=== PATIENT | female | born 1965 | race Caucasian/White ===

== ENCOUNTER → 2018-08-24 | Outpatient (CLI) | payer OTHER ==
[2018-08-24 16:43] VITALS: BP 121/79; PULSE 80; RESP 16; TEMP 98.6; BMI 30.2
--- NOTE | 2018-08-25 09:54 | WWHP ---
[facility] - HISTORY AND PHYSICAL DATE OF DICTATION: 08/24/2018 CHIEF COMPLAINT: The patient is here for her routine gynecologic exam and mammogram. HPI: This is a 52-year-old, G5, P2-0-3-2 with an LMP of 1995. She is status post DANNY and BSO done for benign reasons. The patient is here to establish with this office. It has been about 5 years since her last pelvic exam. The patient states she recently had dental work done and was given an antibiotic. She states she developed vaginal and vulvar pruritus with a whitish discharge. She thinks she has a yeast infection. The patient is otherwise without gynecologic complaints. PAST MEDICAL HISTORY: Fibromyalgia, chronic back and herniated disc problems, history of migraine, history of depression and anxiety. MEDICATIONS: Lyrica 200 mg daily. PAST SURGICAL HISTORY: Arthroscopic knee surgery, DANNY BSO in in 1995. PAST OB HISTORY: Two vaginal deliveries. She also has had one VTP and 2 spontaneous abortions. 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 She has no history of STDs. SOCIAL HISTORY: She quit smoking in 1997. She has 0-2 alcoholic drinks per month and denies drug use. She has been since 1994. She currently does not work outside the home. FAMILY HISTORY: Mother had breast and ovarian cancer. Maternal grandmother had breast cancer. Father had an ID and renal failure. Her brother has renal failure. REVIEW OF SYSTEMS: She has lost approximately 20 to 30 pounds with dietary changes. She denies respiratory, cardiac or GI problems. PHYSICAL EXAMINATION: Blood pressure 121/79, height 5 feet and 2 inches, weight 165 pounds, temperature 98.6, pulse 80, respiratory rate 16, pulse oximeter 97%. BMI 30. This is a well-developed, well-nourished, black female who is alert and oriented x3, in no acute distress. HEENT is within normal limits. NECK: Supple without mass or thyromegaly. CHEST AND LUNGS: Clear to auscultation. HEART: Regular rate and rhythm. Breasts are without mass or discharge. Axillary exam is negative for adenopathy. BACK: Negative for CVA tenderness. ABDOMEN: Soft, nontender, without palpable masses. PELVIC EXAM: External genitalia reveals mild atrophy without lesions. Vagina reveals mild atrophy without lesions. There is a small thick whitish discharge without odor. There is no evidence of prolapse. Bimanual examination reveals a pelvic mass just posterior and superior to the vaginal apex. This measures approximately 4 x 4 cm and is slightly irregular and slightly mobile. This is nontender. Rectovaginal exam confirms this pelvic mass and that the mass does not seem to be rectal stool. There are no rectal masses. Rectal exam is negative for occult blood. EXTREMITIES: Nontender. IMPRESSION: 1. A 52-year-old menopausal female, status post DANNY BSO with a 4 x 4 cm mass palpable with bimanual pelvic examination. Differential diagnosis will include colonic stool, ovarian remnant mass and nongynecologic mass. At this time, I think colonic stool is the most likely. The patient states she does not move her bowels daily. 2. Suspected Mary vaginitis following antibiotic use. PLAN: 1. Pap smears have been discontinued. 2. Self breast awareness was discussed. 3. Screening mammogram will be done today. 4. Pelvic ultrasound will be ordered. The order slip was given to the patient for this. 5. Diflucan 150 mg p.o. x1. The prescription will be called in to [facility] on [address] She will be given 2 refills for when she has similar symptoms after antibiotics. 6. She is currently looking for primary care physician. I recommended that when she establishes with a primary care physician that she talk to them about setting up a colonoscopy for her based on her age. 7. Pelvic ultrasound will be done after trying to empty her bowels using Senokot as directed. 8. She will also return in 1 year and p.r.n. MMODL / IJN: [id number] /
--- NOTE | 2018-08-25 11:15 | MM ---
Reason for exam: screening (asymptomatic). Last mammogram was performed 3 years and 7 months ago. History: Patient is postmenopausal. Family history of breast cancer in maternal grandmother and breast cancer in mother at age 65. Physical Findings: A clinical breast exam by your physician is recommended on an annual basis and results should be correlated with mammographic findings. MG Screening Mammo w CAD Bilateral CC and MLO view(s) were taken. Prior study comparison: January 19, 2015, bilateral MG screening mammo w CAD. July 02, 2010, [facility] DIGITAL LEFT BREAST MAMMOGRAM w/CAD. The breast tissue is heterogeneously dense. This may lower the sensitivity of mammography. Left upper outer quadrant posterior depth focal asymmetry. ASSESSMENT: Incomplete: need additional imaging evaluation, BI-RAD 0 RECOMMENDATION: Special view mammogram of the left breast. If lesion persists on supplemental views, image directed ultrasound is recommended. [facility] will attempt to contact patient to return for supplemental views and ultrasound if indicated.
== END | disposition home or self-care (01) ==
LOC: WWCWWP 17:11
PROVIDERS: ATTEND Obstetrics & Gynecology
DX: Z12.31 Encounter for screening mammogram for malignant neoplasm of breast (principal)
CPT/HCPCS: 77067

== ENCOUNTER → 2018-09-01 | Outpatient (CLI) | payer OTHER ==
--- NOTE | 2018-09-01 14:59 | MM ---
Reason for exam: additional evaluation requested from abnormal screening. Last mammogram was performed less than 1 month ago. History: Patient is postmenopausal. Family history of breast cancer in maternal grandmother and breast cancer in mother at age 65. Physical Findings: Nurse Summary: 1cm nodule in the left breast at 5 o'clock (nurse kp). MG Work Up Mamm w CAD LT Spot compression CC, spot compression MLO, and LM view(s) were taken of the left breast. Prior study comparison: August 24, 2018, bilateral MG screening mammo w CAD. January 19, 2015, bilateral MG screening mammo w CAD. The breast tissue is heterogeneously dense. This may lower the sensitivity of mammography. The previously seen abnormality resolves on additional views and appears as fibroglandular tissue compatible with summation. No suspicious abnormality. These results were verbally communicated with the patient and result sheet given to the patient on 09/01/18. ASSESSMENT: Negative, BI-RAD 1 RECOMMENDATION: Return to routine screening mammogram schedule for both breasts.
== END | disposition home or self-care (01) ==
LOC: RADMAMWWP 13:43
PROVIDERS: ATTEND Obstetrics & Gynecology
DX: R92.8 Other abnormal and inconclusive findings on diagnostic imaging of breast (principal)
CPT/HCPCS: 77065

== ENCOUNTER → 2018-12-17 | Outpatient (CLI) | payer OTHER ==
[2018-12-17 13:42] LABS: Basophils # (A) 0.1 k/uL (0-0.2); Basophils % (A) 1 %; Eosinophils # (A) 0.1 k/uL (0-0.7); Eosinophils % (A) 1 %; HCT 36.6 % (34.0-46.0); HGB 12.3 gm/dL (11.4-16.0); Lymphocytes # (A) 3.1 k/uL (1.0-4.8); Lymphocytes % (A) 54 %; MCH 28.4 pg (25.0-35.0); MCHC 33.4 g/dL (31.0-37.0); Mean Platelet Volume 7.9; Monocytes # (A) 0.2 k/uL (0-1.0); Monocytes % (A) 4 %; Neutrophils # (A) 2.2 k/uL (1.3-7.7); Neutrophils % (A) 37 %; Platelet Count 232 k/uL (150-450); RBC 4.31 m/uL (3.80-5.40); WBC 5.8 k/uL (3.8-10.6)
== END | disposition home or self-care (01) ==
LOC: LABWHC1 12:31
PROVIDERS: ATTEND Surgery
DX: Z01.812 Encounter for preprocedural laboratory examination (principal); K43.2 Incisional hernia without obstruction or gangrene
CPT/HCPCS: 36415; 85025

== ENCOUNTER 2018-12-20 08:09 | Observation (INO) | payer OTHER ==
[2018-12-16 14:44] VITALS: BMI 30.3
[~2018-12-20 08:09] MED LIST: HEPARIN SODIUM,PORCINE 5,000 UNIT/ML 1 ML VIAL SQ ONE
[2018-12-20] MEDS ORDERED: LACTATED RINGERS 1,000 ML IV ONE ×3 (08:46→11:20)
[2018-12-20] MEDS ORDERED: LIDOCAINE 1% 20 ML VIAL (10MG/ML) FOR IV START INTRADERMA ONE (08:47)
[2018-12-20] MEDS ORDERED: DEXAMETHASONE SOD PHOSPHATE 10 MG/ML 1 ML VIAL IV ONE (08:53)
[2018-12-20] MEDS ORDERED: ONDANSETRON 4 MG/2 ML VIAL IVP ONE (08:53)
--- NOTE | 2018-12-20 08:54 | P.GSHP ---
History of Present Illness H&P Date: 12/20/18 Chief Complaint: Incisional hernia This a 50-year-old female developed an incisional hernia the left periumbilical area. Patient is today for laparoscopic robotic-assisted repair. Past Medical History Past Medical History: Fibromyalgia, GERD/Reflux, Osteoarthritis (OA) Additional Past Medical History / Comment(s): headaches, herniated discs with back pain, uses cane ., hernia, States Boil on her thigh recently drained and she completed antibiotic and it is healed . History of Any Multi-Drug Resistant Organisms: None Reported Past Surgical History: Hernia Repair, Hysterectomy, Orthopedic Surgery Additional Past Surgical History / Comment(s): left knee arthroscopy Past Anesthesia/Blood Transfusion Reactions: No Reported Reaction Past Psychological History: Anxiety, Depression Smoking Status: Former smoker Past Alcohol Use History: Occasional Additional Past Alcohol Use History / Comment(s): quit smoking 1987, smoked 1/2 ppd, smoked 20 years. Past Drug Use History: None Reported Additional Drug Use History / Comment(s): tried cbd oil - Past Family History Mother Family Medical History: Cancer Additional Family Medical History / Comment(s): uterine and breast cancer Brother(s) Family Medical History: Cancer Additional Family Medical History / Comment(s): pancreatic cancer Medications and Allergies Home Medications Medication Instructions Recorded Confirmed Type Pregabalin [Lyrica] 200 mg PO BID PRN 12/16/18 12/16/18 History Prilosec (Unknown Dose) 1 tab PO DIRECTED PRN 12/16/18 History Turmeric (Unknown Dose) 1 tab PO DAILY 12/16/18 History oxyCODONE-APAP 10-325MG [Percocet 1 tab PO Q8HR PRN 12/16/18 12/16/18 History 10-325 mg] Allergies Allergy/AdvReac Type Severity Reaction Status Date / Time amoxicillin AdvReac Itching, Unverified 12/16/18 14:30 yeast infection antibiotics AdvReac Unknown yeast Uncoded 12/16/18 14:31 infections Surgical - Exam Vital Signs Temp Pulse Resp BP Pulse Ox 98.9 F 97 16 133/88 98 12/20/18 08:36 12/20/18 08:36 12/20/18 08:36 12/20/18 08:36 12/20/18 08:36 - General well developed, well nourished, no distress - Eyes PERRL - ENT normal pinna - Neck no masses - Respiratory normal expansion - Cardiovascular Rhythm: regular - Abdomen Abdomen: soft, non tender Assessment and Plan Assessment: Incisional hernia. We'll perform laparoscopic robotic-assisted repair.
[2018-12-20] MEDS ORDERED: ESMOLOL 100 MG/10 ML VIAL ONE (09:40)
[2018-12-20] MEDS ORDERED: ROCURONIUM BROMIDE 10 MG/ML 10 ML VIAL IV ONE (09:40)
[2018-12-20] MEDS ORDERED: LIDOCAINE 1% INJ 10MG/ML (20 ML MDV) ONE (09:40)
[2018-12-20] MEDS ORDERED: KETOROLAC 30 MG/ML 1 ML VIAL ONE (09:40)
[2018-12-20] MEDS ORDERED: GLYCOPYRROLATE 0.2 MG/ML 2 ML VIAL ONE (09:40)
[2018-12-20] MEDS ORDERED: SUCCINYLCHOLINE CHLORIDE 100 MG/5 ML SYR IV ONE (09:40)
[2018-12-20] MEDS ORDERED: fentaNYL (PF) 50 MCG/ML 2 ML AMP ONE (09:40)
[2018-12-20] MEDS ORDERED: MIDAZOLAM 2 MG/2 ML VIAL ONE (09:40)
[2018-12-20] MEDS ORDERED: PROPOFOL 10 MG/ML 20 ML VIAL IV ONE (09:40)
[2018-12-20] MEDS ORDERED: HYDROmorphone (PF) 1 MG/ML ONE (09:40)
[2018-12-20] MEDS ORDERED: NEOSTIGMINE 1 MG/ML 10 ML VIAL ONE (09:40)
[2018-12-20] MEDS ORDERED: BUPIVACAINE (PF) 0.5% 30 ML VIAL SQ ONE ×2 (10:14)
[2018-12-20] MEDS ORDERED: NALOXONE 0.4 MG/ML 1 ML VIAL IV PRN (11:20)
[2018-12-20] MEDS ORDERED: ACETAMINOPHEN TAB 325 MG TAB PO PRN (11:20)
[2018-12-20] MEDS ORDERED: ONDANSETRON 4 MG/2 ML VIAL IVP PRN (11:20)
--- NOTE | 2018-12-20 11:37 | P.OP ---
Date of Procedure: 12/20/18 Preoperative Diagnosis: Incisional hernia incarcerated Postoperative Diagnosis: Cursory incisional hernia Procedure(s) Performed: Laparoscopic robotic system repair of incarcerated incisional hernia Partial omentectomy Lysis of adhesions Anesthesia: JUAN DAVID Surgeon: Noé Hansen Estimated Blood Loss (ml): 5 Pathology: other (Omentum) Condition: stable Disposition: PACU Description of Procedure: The patient was placed on the operating table in the supine position. He r eceived general anesthesia. His abdomen was prepped and draped usual fashion. Using a 5 mm optical trocar under direct visualization the peritoneal cavity was entered in the left upper quadrant. The abdomen was then insufflated. The laparoscope was placed back into the perineal cavity. Next a 8 mm robotic trocar was placed in the left lower quadrant and a 12 mm robotic trocar was placed in the left lateral position. The original 5 mm trocar was exchanged for a 8 mm robotic trocar. The patient's placed in the left side up position. And the patient was docked to the robot. There were extensive adhesions over the low midline position. Using hook cautery and sharp dissection the adhesions were lysed. Care was taken to identify and preserve the bowel wall. The incisional hernia was visualized. Using hook cautery the peritoneum over the incisional hernia was excised. The incarcerated omentum was dissected free from the hernia and then transected with electrocautery and sent to pathology. The fascial opening was repaired using 0V LOC suture. Next a piece of 11 cm round ventral light ST mesh was placed into the. Cavity and secured with 2 OV lock suture. The patient was undocked the robot. The needles were retrieved. The fascia of the 12 mm trocar site was closed with 0 Ethibond suture. Skin was closed interrupted 3-0 Monocryl suture. Dermabond dressings was applied. Patient tolerated procedure well and was sent to recovery room stable condition.
[2018-12-20] MEDS ORDERED: HYDROmorphone 1 MG/ML 1 ML SYRINGE IVP ONE ×4 (12:05→12:38)
[2018-12-20] MEDS: KETOROLAC 30 MG/ML 1 ML VIAL IVP SCH ×2 (14:02→17:51)
[2018-12-20] MEDS: HYDROmorphone 0.5 MG/0.5 ML SYRINGE IVP PRN ×3 (15:53→22:34)
[2018-12-20] MEDS: HEPARIN SODIUM,PORCINE 5,000 UNIT/ML 1 ML VIAL SQ SCH (20:51)
[2018-12-20] MEDS: HYDROcodone/APAP 5-325MG 1 EACH TAB PO PRN (21:33)
[2018-12-21] MEDS: KETOROLAC 30 MG/ML 1 ML VIAL IVP SCH ×3 (00:41→11:04)
[2018-12-21 01:30] VITALS: RESP 18
[2018-12-21] MEDS: HYDROcodone/APAP 5-325MG 1 EACH TAB PO PRN ×2 (03:20→09:04)
[2018-12-21 04:49] VITALS: BP 148/84; PULSE 93; TEMP 98.2
[2018-12-21] MEDS: HYDROmorphone 0.5 MG/0.5 ML SYRINGE IVP PRN ×3 (04:55→11:02)
[2018-12-21] MEDS: HEPARIN SODIUM,PORCINE 5,000 UNIT/ML 1 ML VIAL SQ SCH (07:08)
[2018-12-21 08:49] LABS: Basophils % (A) 0 %; Eosinophils # (A) 0.1 k/uL (0-0.7); Eosinophils % (A) 1 %; HCT 34.3 % (34.0-46.0); HGB 12.4 gm/dL (11.4-16.0); Lymphocytes # (A) 2.3 k/uL (1.0-4.8); Lymphocytes % (A) 27 %; MCH 29.3 pg (25.0-35.0); MCHC 36.3 g/dL (31.0-37.0); MCV 80.8 fL (80.0-100.0); Mean Platelet Volume 8.4; Monocytes # (A) 0.5 k/uL (0-1.0); Monocytes % (A) 5 %; Neutrophils # (A) 5.6 k/uL (1.3-7.7); Neutrophils % (A) 65 %; Platelet Count 188 k/uL (150-450); RBC 4.24 m/uL (3.80-5.40); WBC 8.5 k/uL (3.8-10.6)
[2018-12-21] MEDS ORDERED: ENOXAPARIN 40 MG/0.4 ML SYRINGE SQ SCH (09:00)
--- NOTE | 2018-12-21 11:54 | P.DS ---
Providers Date of admission: 12/20/18 19:04 Expected date of discharge: 12/21/18 Attending physician: Noé Hansen Primary care physician: Stated None Hospital Course: 53-year-old female who underwent laparoscopic robotic repair of incarcerated incisional hernia. Patient is doing well postoperatively without any immediate complications. She is tolerating diet without nausea or vomiting. Vital signs have been stable. Pain controlled on current regimen. She is stable for discharge home today. Please see EMR for further hospital course details. Discharge diagnosis 1. Status post laparoscopic robotic repair of incarcerated incisional hernia Nurse practitioner note has been reviewed by physician. Signing provider agrees with the documented findings, assessment, and plan of care. Patient Condition at Discharge: Stable Plan - Discharge Summary Discharge Rx Participant: Yes New Discharge Prescriptions: New Hydrocodone/Acetaminophen [[place] 5-325] 1 tab PO Q6HR PRN #10 tab PRN Reason: Pain Discontinued oxyCODONE-APAP 10-325MG [Percocet 10-325 mg] 1 tab PO Q8HR PRN PRN Reason: Pain No Action Pregabalin [Lyrica] 200 mg PO BID PRN PRN Reason: Pain Turmeric (Unknown Dose) 1 tab PO DAILY Prilosec (Unknown Dose) 1 tab PO DIRECTED PRN PRN Reason: Heartburn Discharge Medication List Pregabalin [Lyrica] 200 mg PO BID PRN 12/16/18 [History] Prilosec (Unknown Dose) 1 tab PO DIRECTED PRN 12/16/18 [History] Turmeric (Unknown Dose) 1 tab PO DAILY 12/16/18 [History] Hydrocodone/Acetaminophen [[place] 5-325] 1 tab PO Q6HR PRN #10 tab 12/21/18 [Rx] Follow up Appointment(s)/Referral(s): Noé Hansen MD [STAFF PHYSICIAN] - 12/28/18 2:40 pm Patient Instructions/Handouts: *Surgery [facility] - (Anesthesia) Discharge Instructions Outpatient Surgery, Laparoscopic Herniorrhaphy (DC) Activity/Diet/Wound Care/Special Instructions: No driving while taking [place] No lifting over 10 pounds You may shower. No soaking or tub baths Very light activity until you are reevaluated at your follow up appointment with your surgeon
== END 2018-12-21 11:56 | disposition home or self-care (01) ==
LOC: OR 08:09 → 6PED 11:20 → 4MS4W 13:40 → OR 19:04 → 4MS4W 19:04
PROVIDERS: ADMIT Surgery; ATTEND Surgery
DX: K43.0 Incisional hernia with obstruction, without gangrene (principal); M79.7 Fibromyalgia; K21.9 Gastro-esophageal reflux disease without esophagitis; M19.90 Unspecified osteoarthritis, unspecified site; F41.9 Anxiety disorder, unspecified; F32.9 Major depressive disorder, single episode, unspecified; Z87.891 Personal history of nicotine dependence; Z79.899 Other long term (current) drug therapy; Z79.891 Long term (current) use of opiate analgesic; Z88.1 Allergy status to other antibiotic agents; Z88.0 Allergy status to penicillin; Z80.3 Family history of malignant neoplasm of breast; Z80.0 Family history of malignant neoplasm of digestive organs; Z80.49 Family history of malignant neoplasm of other genital organs
CPT/HCPCS: 85025; 88302; 49655; G0378 ×2; C1781; J2250; J1644; J1100; J2710; J0690; J2405; J2001; J3010; J1885; J1170 ×3; J0330; J2704

== ENCOUNTER → 2020-02-01 | Outpatient (CLI) | payer OTHER ==
[2020-02-01 09:53] VITALS: BP 105/72; PULSE 101; RESP 18; TEMP 98.1
--- NOTE | 2020-02-01 10:26 | P.HPOB ---
History of Present Illness H&P Date: 02/01/20 Chief Complaint: The patient is here for her routine gynecologic exam and ma mmogram. This is a 54-year-old 032 with an LMP of 1995. She is status post DANNY/BSO for benign reasons. The patient is without gynecologic complaints. Review of Systems The patient's weight has been stable over the last year. She denies respiratory, cardiac, or G.I. problems. Past Medical History Past Medical History: Fibromyalgia, GERD/Reflux, Osteoarthritis (OA) Additional Past Medical History / Comment(s): History of migraine, herniated discs with back pain, uses cane. 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 History of Any Multi-Drug Resistant Organisms: None Reported Past Surgical History: Hernia Repair, Hysterectomy, Orthopedic Surgery Additional Past Surgical History / Comment(s): left knee arthroscopy. DANNY/BSO in 1995. Abdominal hernia repair 2018. Past Anesthesia/Blood Transfusion Reactions: No Reported Reaction Past Psychological History: Anxiety, Depression Smoking Status: Never smoker Past Alcohol Use History: Occasional (2 per week) Additional Past Alcohol Use History / Comment(s): quit smoking 1987, smoked 1/2 ppd, smoked 20 years. Past Drug Use History: None Reported Additional Drug Use History / Comment(s): tried cbd oil Additional History: She has been since 1994 and currently does not work outside of the home. She has 7 grandchildren. She is a . - Past Family History Mother Family Medical History: Cancer Additional Family Medical History / Comment(s): uterine and breast cancer Brother(s) Family Medical History: Cancer Additional Family Medical History / Comment(s): pancreatic cancer Medications and Allergies Home Medications Medication Instructions Recorded Confirmed Type Pregabalin [Lyrica] 200 mg PO BID PRN 12/16/18 02/01/20 History Prilosec (Unknown Dose) 1 tab PO DIRECTED PRN 12/16/18 02/01/20 History Turmeric (Unknown Dose) 1 tab PO DAILY 12/16/18 02/01/20 History Hydrocodone/Acetaminophen [[place] 1 tab PO Q6HR PRN #10 tab 12/21/18 02/01/20 Rx 5-325] Allergies Allergy/AdvReac Type Severity Reaction Status Date / Time No Known Allergies Allergy Verified 02/01/20 09:47 Exam Vital Signs Temp Pulse Resp BP Pulse Ox 02/01/20 09:50 98.1 F 101 H 18 105/72 96 Intake and Output 01/31/20 02/01/20 02/01/20 22:59 06:59 14:59 Other: Weight 74.843 kg Height 5 feet 2-1/2 inches, weight 165 pounds, the BMI 29.7. This is a well-developed well-nourished black female who is alert and oriented times 3 in no acute distress. HEENT: Within normal limits. NECK: Supple without mass or thyromegaly. CHEST AND LUNGS: Clear to auscultation. HEART: Regular rate and rhythm. BREASTS: Are without mass or discharge. AXILLARY EXAM: Negative for adenopathy. BACK: Negative for CVA tenderness. ABDOMEN: Soft, nontender, without palpable masses. PELVIC EXAM: External genitalia appears normal with mild atrophy. Vagina appears normal with mild atrophy. There is no evidence of prolapse. Bimanual examination reveals a palpable mass in the midline just posterior to the vaginal cuff. This is nontender. This measures approximately 5 cm and is slightly mobile. Palpation it resembles stool. There are no other palpable masses and there is no tenderness. RECTAL EXAM: Rectovaginal exam is negative for rectal mass or tenderness and is negative for occult blood. The mass palpated with bimanual examination is again palpated, but seems to be not rectal stool. EXTREMITIES: Nontender. IMPRESSION: 1. 54-year-old menopausal female status post DANNY/BSO for benign reasons with helpful mass on bimanual examination in the midline. Differential diagnosis will include colonic stool, ovarian remnant mass and nontender gynecologic mass. This was palpated last year, but pelvic ultrasound was not done as recommended. PLAN: 1. Pap smears have been discontinued. 2. Self breast awareness was discussed with the patient. 3. Screening mammogram will be done today. 4. Pelvic ultrasound was again recommended and the order slip was given to the patient. I have stressed the importance of having this done to determine the nature of the palpated mass. I have also recommended that she use Senokot to try to empty stool from the colon and rectum prior to the ultrasound. 5. Osteoporosis prevention was discussed. I have stressed the importance of adequate calcium, vitamin D and regular exercise. Recommended amounts of ca lcium and vitamin D were also discussed. 6. I have also recommended colonoscopy based on her age. I have recommended that she see Dr. Frederick for this since she states he did her hernia repair last year. She will discuss this with her PCP to see if they can help her arrange for this. 7. She was advised to return in one year for her annual well woman exam and as needed.
--- NOTE | 2020-02-02 11:31 | MM ---
Reason for exam: screening (asymptomatic). Last mammogram was performed 1 year and 5 months ago. History: Patient is postmenopausal. Family history of breast cancer in maternal grandmother and breast cancer in mother at age 65. Physical Findings: A clinical breast exam by your physician is recommended on an annual basis and results should be correlated with mammographic findings. MG Screening Mammo w CAD Bilateral CC and MLO view(s) were taken. Prior study comparison: September 01, 2018, left breast MG work up mamm w CAD LT. August 24, 2018, bilateral MG screening mammo w CAD. There are scattered fibroglandular densities. No significant changes when compared with prior studies. ASSESSMENT: Benign, BI-RAD 2 RECOMMENDATION: Routine screening mammogram of both breasts in 1 year.
== END | disposition home or self-care (01) ==
LOC: WWCWWP 09:38
PROVIDERS: ATTEND Obstetrics & Gynecology
DX: Z12.31 Encounter for screening mammogram for malignant neoplasm of breast (principal)
CPT/HCPCS: 77067

== ENCOUNTER → 2020-11-06 | Outpatient (CLI) | payer OTHER ==
--- NOTE | 2020-11-07 09:49 | US ---
EXAMINATION TYPE: US pelvic limited DATE OF EXAM: 11/06/2020 COMPARISON: None CLINICAL HISTORY: pelvic mass R19.09. Total hysterectomy x 1994 TECHNIQUE: Transabdominal (TA). Transabdominal sonographic images of the pelvis were acquired. Date of LMP: 1994 EXAM MEASUREMENTS: 1. Uterus: Surgically absent 2. Endometrium: Surgically absent 3. Right Ovary: Surgically absent 4. Left Ovary: Surgically absent 5. Bilateral Adnexa: wnl 6. Posterior cul-de-sac: No free fluid IMPRESSION: ..
--- NOTE | 2020-11-07 14:00 | P.PN ---
Progress Note - Text Progress Note Date: 11/07/20 OUTPATIENT FOLLOW-UP NOTE TEST(S)/RESULTS: Pelvic ultrasound done on 11/06/2020 was unremarkable. METHOD OF NOTIFICATION: This result was left on the patient's voicemail. PATIENT COMMENTS: DIAGNOSIS: Negative pelvic ultrasound. DISCUSSION: The patient was previously seen on 02/01/2020 for her well woman examination. On examination there was a pelvic mass palpable that could have been stool but could not be confirmed with rectal exam. He was asked to get a pelvic ultrasound for this reason. Since the pelvic ultrasound was unremarkable, no further workup is necessary. PLAN: As above.
== END | disposition home or self-care (01) ==
LOC: RADUSWWP 16:23
PROVIDERS: ATTEND Obstetrics & Gynecology
DX: Z90.710 Acquired absence of both cervix and uterus (principal); Z98.890 Other specified postprocedural states
CPT/HCPCS: 76857

== ENCOUNTER → 2022-02-11 | Outpatient (CLI) | payer OTHER ==
--- NOTE | 2022-02-11 15:28 | XR ---
EXAMINATION TYPE: XR chest 2V DATE OF EXAM: 02/11/2022 3:19 PM COMPARISON: None TECHNIQUE: XR chest 2V Frontal and lateral views of the chest. CLINICAL INDICATION:Female, 56 years old with history of R76.12 NONSPEC REACTION TO GAMMA INTRFRN RES PNS W/; FINDINGS: Lungs/Pleura: There is no evidence of pleural effusion, focal consolidation, or pneumothorax. Scatte red small calcified granulomas. Pulmonary vascularity: Unremarkable. Heart/mediastinum: Cardiomediastinal silhouette is unremarkable. Musculoskeletal: No acute osseous pathology. IMPRESSION: No acute cardiopulmonary disease/process.
== END | disposition home or self-care (01) ==
LOC: RADXRMAIN 15:08
PROVIDERS: ATTEND Emergency Medicine
DX: R76.12 Nonspecific reaction to cell mediated immunity measurement of gamma interferon antigen response without active tuberculosis (principal)
CPT/HCPCS: 71046

== ENCOUNTER → 2023-02-11 | Outpatient (CLI) | payer OTHER ==
[2023-02-11 17:21] LABS: Basophils # (A) 0.03 X 10*3/uL (0.00-0.10); Basophils % (A) 0.5 %; Eosinophils # (A) 0.13 X 10*3/uL (0.04-0.35); Eosinophils % (A) 2.3 %; HCT 37.2 % (37.2-46.3); HGB 12.7 g/dL (12.0-15.0); Immature Grans, Automated 0 %; Lymphocytes # (A) 1.81 X 10*3/uL (0.90-5.00); Lymphocytes % (A) 32.2 %; MCH 30.2 pg (27.0-32.0); MCHC 34.1 g/dL (32.0-37.0); MCV 88.6 FL (80.0-97.0); Mean Platelet Volume 10.9 FL (9.5-12.2); Monocytes # (A) 0.27 X 10*3/uL (0.20-1.00); Monocytes % (A) 4.8 %; NRBC Per 100 WBC 0 X 10*3/uL (0.00-0.01); Neutrophils # (A) 3.38 X 10*3/uL (1.80-7.70); Neutrophils % (A) 60.2 %; Platelet Count 263 X 10*3/uL (140-440); RDW 13.5 % (11.5-14.5); WBC 5.62 X 10*3/uL (4.50-10.00)
[2023-02-11 17:43] LABS: ALT 16 U/L (8-44); AST 16 U/L (13-35); Albumin 4.7 g/dL (3.8-4.9); Albumin/Globulin Ratio 1.96 Ratio (1.60-3.17); Alkaline Phosphatase 79 U/L (41-126); BUN/Creat Ratio 16.67 Ratio (12.00-20.00); Calcium 9.7 mg/dL (8.7-10.3); Carbon Dioxide 24.2 mmol/L (21.6-31.8); Chloride 106 mmol/L (96-109); Chol/HDL Ratio 2.99 Ratio; Globulin 2.4 g/dL (1.6-3.3); Glucose 113 mg/dL (70-110); LDL Cholesterol,Calculated 114.4 mg/dL (0.0-131.0); Sodium 143 mmol/L (135-145); Total Bilirubin 0.4 mg/dL (0.3-1.2); Total Protein 7.1 g/dL (6.2-8.2)
== END | disposition home or self-care (01) ==
LOC: LABWHC1 07:31
PROVIDERS: ATTEND Internal Medicine
DX: Z00.01 Encounter for general adult medical examination with abnormal findings (principal); M79.7 Fibromyalgia; G43.909 Migraine, unspecified, not intractable, without status migrainosus; F41.1 Generalized anxiety disorder
CPT/HCPCS: 36415; 80053; 80061; 82306; 83036; 84443; 85025